=== PATIENT | female | born 1955 | race Caucasian/White ===

== ENCOUNTER → 2017-07-24 07:37 | Outpatient (CLI) | payer BC, OTHER, SELFPAY ==
--- NOTE | 2017-07-24 07:45 | US_ITS ---
US abdomen limited Ordering Physician: Callie Burton Patient Age: 62 years: Female HISTORY: ITS.REASON: RUQ PAINbloating. Nausea one month. History of breast? Cancer TECHNIQUE: Ultrasound abdomen right upper quadrant COMPARISON :Previous ultrasound abdomen FINDINGS Pancreas. Only fair visualization of head, body. & medial tail of pancreas. These areas grossly unremarkable Liver. Diffuse fatty changes. Slight increased echogenicity throughout. No focal lesions. Right kidney.: 9.6 cm x 4.1 cm x 6.7 cm. No hydronephrosis nor mass. Borderline thinning cortex upper pole Otherwise Cortex well-maintained. Gallbladder. Large gallstone measuring over 2 cm by ultrasound towards neck of gallbladder. Borderline to mild gallbladder wall thickening. Diffuse. No fluid or additional inflammatory changes at gallbladder. Common duct normal diameter 2.5 mm at hilum of liver ====IMPRESSION: Cholelithiasis. .Large 2 cm gallstone towards neck of gallbladder. Mild diffuse gallbladder wall thickening . Common duct normal. Fatty changes liver.
== END ==
PROVIDERS: PCP Nurse Practitioner Family; Visit Provider Nurse Practitioner Family
DX: R10.11 Right upper quadrant pain (principal)
CPT/HCPCS: 76705

== ENCOUNTER → 2017-12-14 09:09 | Outpatient (POV) | payer BC, OTHER, SELFPAY | PROVIDERS: PCP Nurse Practitioner Family; Visit Provider Dermatology | DX: Z00.00 Encounter for general adult medical examination without abnormal findings (principal) ==

== ENCOUNTER → 2018-02-13 07:07 | Outpatient (CLI) | payer BC, OTHER, SELFPAY ==
[2018-02-13 14:03] LABS: Free T4 (Free Thyroxine) 1.28 ng/dl (0.76-1.46); Thyroid Stimulating Hormone 2.31 uIU/ml (0.358-3.740)
== END ==
PROVIDERS: PCP Otolaryngology; Visit Provider Otolaryngology
DX: E03.9 Hypothyroidism, unspecified (principal); Z86.018 Personal history of other benign neoplasm
CPT/HCPCS: 36415; 84439; 84443

== ENCOUNTER 2019-03-29 08:30 | Outpatient (RCR) | payer OTHER, SELFPAY | END 2019-03-29 08:35 | disposition home or self-care (01) | LOC: PT 08:30 | PROVIDERS: Visit Provider Internal Medicine Hematology & Oncology | DX: C50.812 Malignant neoplasm of overlapping sites of left female breast (principal); Z85.3 Personal history of malignant neoplasm of breast; R11.0 Nausea; K59.00 Constipation, unspecified | CPT/HCPCS: 97014; 97110; 97112; 97116; 97140; 97163; 97164; G0283 ==

== ENCOUNTER → 2019-07-11 14:28 | Outpatient (CLI) | payer OTHER, SELFPAY ==
--- NOTE | 2019-07-11 14:34 | XR_ITS ---
PROCEDURE: XR FOOT LT MIN 3V CLINICAL INDICATION: LT FOOT PAIN COMPARISON: No exams were available for comparison FINDINGS: No fracture or dislocation. No lytic or blastic change. There is normal mineralization. There are mild osteoarthritic changes at the 1st metatarsophalangeal joint. 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 Other findings:None. IMPRESSION: Mild osteoarthritic change 1st MTP joint Dictated by: Barrera Abbott MD 07/11/2019 15:19 Electronically signed by Barrera Abbott MD in [place] 07/11/2019 15:19
== END ==
PROVIDERS: PCP Nurse Practitioner Family; Visit Provider Nurse Practitioner Family
DX: M79.672 Pain in left foot (principal)
CPT/HCPCS: 73630

== ENCOUNTER → 2020-01-21 07:08 | Outpatient (CLI) | payer OTHER, SELFPAY ==
[2020-01-21 15:10] LABS: Free T4 (Free Thyroxine) 1.27 ng/dl (0.78-2.19)
[2020-01-21 15:23] LABS: Thyroid Stimulating Hormone 4.54 uIU/mL (0.465-4.68)
== END ==
PROVIDERS: Visit Provider Otolaryngology
DX: E07.9 Disorder of thyroid, unspecified (principal)
CPT/HCPCS: 36415; 84439; 84443

== ENCOUNTER → 2020-04-27 17:57 | Outpatient (CLI) | payer OTHER, SELFPAY | PROVIDERS: Visit Provider Nurse Practitioner | DX: L60.0 Ingrowing nail (principal) | CPT/HCPCS: 87070; 87077; 87186; 87205 ==

== ENCOUNTER → 2021-01-25 07:32 | Outpatient (CLI) | payer MEDICARE, SELFPAY ==
[2021-01-25 13:36] LABS: Free T4 (Free Thyroxine) 1.49 ng/dl (0.78-2.19)
[2021-01-25 13:50] LABS: Thyroid Stimulating Hormone 3.83 uIU/mL (0.465-4.68)
== END ==
PROVIDERS: Visit Provider Otolaryngology
DX: E03.9 Hypothyroidism, unspecified (principal); E07.9 Disorder of thyroid, unspecified
CPT/HCPCS: 36415; 84439; 84443

== ENCOUNTER → 2021-03-03 10:05 | Outpatient (CLI) | payer MEDICARE, OTHER, SELFPAY ==
--- NOTE | 2021-03-03 10:12 | XR_ITS ---
PROCEDURE: XR CHEST 2V CLINICAL HISTORY: BRONCHITIS COMPARISON: CR CXR CHEST(2 VIEWS-NOT PORTABLE) from 06/22/2016 FINDINGS: Borderline cardiomegaly without failure. Infiltrate is present in the left upper lobe. This is somewhat more dense peripherally. Faint infiltrate may be present in the right apex. There is a small left pleural effusion. Bilateral axillary clips are present. There are mild degenerative changes in the thoracic spine. Trace right effusion also suspected. No acute bony abnormalities. IMPRESSION: Left upper lobe pneumonia with possible nodular component laterally. Recommend following till clear. Possible faint infiltrate in the right apex Small left effusion and trace right effusion Dictated by: Barrera Abbott MD 03/03/2021 18:06 Barrera Abbott MD in [place] 03/03/2021 18:06
== END ==
PROVIDERS: PCP Nurse Practitioner Family; Visit Provider Nurse Practitioner Family
DX: J20.9 Acute bronchitis, unspecified (principal)
CPT/HCPCS: 71046

== ENCOUNTER → 2021-03-16 09:04 | Outpatient (CLI) | payer MEDICARE, OTHER, SELFPAY ==
--- NOTE | 2021-03-16 09:09 | XR_ITS ---
PROCEDURE: XR CHEST 2V CLINICAL HISTORY: BRONCHOPNEUMONIA COMPARISON: CR CXR CHEST(2 VIEWS-NOT PORTABLE) from 06/22/2016 CR XR CHEST 2V from 03/03/2021 FINDINGS: Borderline cardiomegaly without failure. COPD changes. Left upper lobe pneumonia is once again noted and is slightly worse medially. There remains a nodular component along the left upper lobe laterally not significantly changed. There is a small left pleural effusion with patchy infiltrate in the left lower lobe which is developed in the interval. Bilateral axillary clips are present. Possible faint infiltrate right upper lobe once again noted.. No acute bony findings. IMPRESSION: Worsening left upper lobe and left lower lobe pneumonia. Postobstructive process is a consideration. CT chest with contrast suggested for further evaluation. Possible faint infiltrate right upper lobe. Small left pleural effusion is slightly larger Dictated by: Barrera Abbott MD 03/16/2021 18:17 Barrera Abbott MD in [place] 03/16/2021 18:17
== END ==
PROVIDERS: PCP Nurse Practitioner Family; Visit Provider Nurse Practitioner Family
DX: J18.0 Bronchopneumonia, unspecified organism (principal)
CPT/HCPCS: 71046